=== PATIENT | female | born 2000 | race Caucasian/White ===

== ENCOUNTER 2023-02-16 12:32 | Emergency (ER) | payer OTHER, SELFPAY ==
--- NOTE | ~2023-02-16 | CT_ITS ---
EXAMINATION: CT ABDOMEN AND PELVIS WITH CONTRAST CLINICAL INFORMATION: Diffuse abdominal pain COMPARISON: None available. TECHNIQUE: Multidetector volumetric images were obtained from the superior aspect of the liver through the pubic symphysis following administration 85 mL of Omnipaque 350 intravenous contrast. Sagittal and coronal reformatted images were obtained on the technologist's workstation. Oral contrast: No This CT examination was performed using dose optimization techniques as appropriate, variously including the following: *Automated exposure control *Adjustment of mA and/or kV according to patient size (this includes techniques or standardized protocols for targeted exams where dose is matched to indication/reason for exam; i.e. extremities or head) *Use of iterative reconstruction technique DLP: 662 mGy-cm FINDINGS: Motion degraded exam which somewhat limits evaluation. LUNG BASES: Unremarkable. ABDOMINAL AND PELVIC WALL: Unremarkable. LIVER AND BILIARY TREE: Unremarkable. GALLBLADDER: Unremarkable. PANCREAS: Unremarkable. SPLEEN: Unremarkable. ADRENAL GLANDS: Unremarkable. KIDNEYS AND URETERS: Unremarkable. GASTROINTESTINAL TRACT: Unremarkable. Appendix is not definitively identified however there are no secondary findings to suggest appendicitis. VASCULAR: Unremarkable. LYMPH NODES/PERITONEUM: No lymphadenopathy. FREE FLUID: None. BLADDER: Unremarkable. PELVIC VISCERA: Intrauterine device in place. OSSEOUS STRUCTURES: Unremarkable. CT/CT abdomen pelvis w IV con IMPRESSION: Exam is motion degraded limiting evaluation. With this limitation, no acute findings to explain symptoms of abdominal pain.
--- NOTE | 2023-02-16 12:43 | ECG_ITS ---
Test Reason : cp Blood Pressure : / mmHG Vent. Rate : 064 BPM Atrial Rate : 064 BPM P-R Int : 156 ms QRS Dur : 088 ms QT Int : 406 ms P-R-T Axes : 073 050 044 degrees QTc Int : 418 ms Normal sinus rhythm Normal ECG No previous ECGs available Referred By: Randy Chowdhury Electronically Signed By:CARISSA LOZANO
--- NOTE | 2023-02-16 13:05 | ED.GENADULT ---
HPI - General Adult General Chief complaint: General Medical <BOB Smith - Last Filed: 02/16/23 13:10> Stated complaint: Vomiting <BOB Smith - Last Filed: 02/16/23 13:10> Time Seen by Provider: 02/16/23 15:58 <BOB Smith - Last Filed: 02/16/23 13:10> Source: patient and RN notes reviewed <Amilcar Amaro - Last Filed: 02/16/23 20:11> Mode of arrival: ambulatory <Amilcar Amaro - Last Filed: 02/16/23 20:11> Limitations: no limitations <Amilcar Amaro - Last Filed: 02/16/23 20:11> History of Present Illness HPI narrative: 22-year-old female who presents for evaluation of vomiting. She reports she started with generalized abdominal pain and vomiting that started 2 days ago. She reports that her symptoms seemed to improve yesterday then got worse again today. She reports vomiting approximately 30 minutes. Denies any seen any blood in vomitus. Denies any history abdominal surgeries She reports that she is currently on her menstrual cycle and not . She rates her pain as 8/10. The patient also complains of chest pain located in upper chest. This is not related to exertion Denies any shortness of breath or palpitations No fevers noted <Amilcar Amaro - Last Filed: 02/16/23 20:11> Related Data Home medications: Previous Rx's Medication Instructions Recorded ondansetron 4 mg disintegrating 4 mg PO Q8H PRN nausea and 02/16/23 tablet vomiting #12 tabs <BOB Smith - Last Filed: 02/16/23 13:10> Allergies/adverse reactions: Allergies Allergy/AdvReac Type Severity Reaction Status Date / Time No Known Allergies Allergy Verified 02/16/23 13:16 <BOB Smith - Last Filed: 02/16/23 13:10> Review of Systems Constitutional: Constitutional: Reports as per HPI, Denies fever(s) and Denies headache(s) <Amilcar Amaro - Last Filed: 02/16/23 20:11> ENT: Denies headache(s) <Amilcar Amaro - Last Filed: 02/16/23 20:11> Cardiovascular: Cardiovascular: Reports chest pain, Denies syncope, Denies rapid heart rate, Denies irregular heart rhythm and Denies dyspnea <Amilcar Grajeday - Last Filed: 02/16/23 20:11> Respiratory: Respiratory: Denies cough and Denies dyspnea <Amilcar Grajeday - Last Filed: 02/16/23 20:11> Gastrointestinal: Gastrointestinal: Reports abdominal pain, Denies coffee ground emesis, Denies constipation, Reports nausea and Reports vomiting <Amilcar Amaro Last Filed: 02/16/23 20:11> Genitourinary: Genitourinary: Denies dysuria <Amilcar Amaro Last Filed: 02/16/23 20:11> Neurologic: Denies syncope, Denies headache(s) and Denies focal weakness <Amilcar Grajeday - Last Filed: 02/16/23 20:11> [facility] Social History Social History: Social History Alcohol intake: current Alcohol intake frequency: a few times a week Smoked in Last 30 Days: Yes Use of substances other than those prescribed or required for medical reasons: Yes Substance Use Type: Marijuana Advance Directives: No Advance Directives Information Provided: No Patient : No <BOB Smith - Last Filed: 02/16/23 13:10> Physical Exam ED Vital Signs: Vital Signs - 24 hr 02/16/23 13:16 02/16/23 15:25 02/16/23 17:53 Temperature 98 F 97.8 F Pulse Rate 65 60 59 Respiratory Rate 16 18 18 Blood Pressure 158/72 H 144/68 H 147/66 H Pulse Oximetry 100 100 100 Oxygen Delivery Method Room Air Room Air Room Air 02/16/23 19:30 Temperature Pulse Rate 62 Respiratory Rate 16 Blood Pressure 137/65 Pulse Oximetry 100 Oxygen Delivery Method Room Air BMI result Body Mass Index 34.0 <BOB Smith - Last Filed: 02/16/23 13:10> Vital Signs - 24 hr 02/16/23 13:16 02/16/23 15:25 02/16/23 17:53 Temperature 98 F 97.8 F Pulse Rate 65 60 59 Respiratory Rate 16 18 18 Blood Pressure 158/72 H 144/68 H 147/66 H Pulse Oximetry 100 100 100 Oxygen Delivery Method Room Air Room Air Room Air 02/16/23 19:30 Temperature Pulse Rate 62 Respiratory Rate 16 Blood Pressure 137/65 Pulse Oximetry 100 Oxygen Delivery Method Room Air BMI result Body Mass Index 34.0 <Amilcar Last Filed: 02/16/23 20:11> Const General: healthy appearing, comfortable, no acute distress, alert and awake < - Last Filed: 02/16/23 20:11> Nutritional Appearance: well nourished < Last Filed: 02/16/23 20:11> Orientation/consciousness: patient oriented x3 < Last Filed: 02/16/23 20:11> HENMT Head: Yes normocephalic and Yes atraumatic < Last Filed: 02/16/23 20:11> Throat: Yes posterior oropharynx normal < Last Filed: 02/16/23 20:11> Eyes Eyelids: Yes eyelids normal < Last Filed: 02/16/23 20:11> Conjunctivae: conjunctivae normal < Last Filed: 02/16/23 20:11> Sclerae: sclerae normal < Last Filed: 02/16/23 20:11> Corneas: corneas normal < Last Filed: 02/16/23 20:11> Pupils: Equal, round and reactive pupils present < Last Filed: 02/16/23 20:11> EOM: EOMs intact bilaterally < Last Filed: 02/16/23 20:11> Neck Neck: Yes full ROM < Last Filed: 02/16/23 20:11> Resp Effort & Inspection: normal respiratory effort, able to speak in complete sentences, no audible wheezes and not labored < Last Filed: 02/16/23 20:11> Auscultation: clear to auscultation bilaterally < - Last Filed: 02/16/23 20:11> Cardio Rate: regular rate <Amilcar OGarett - Last Filed: 02/16/23 20:11> Rhythm: regular rhythm <Amilcar OGarett - Last Filed: 02/16/23 20:11> GI Inspection: No distended <Amilcar [place] - Last Filed: 02/16/23 20:11> Palpation (GI): Soft to palpation, not firm, Tenderness to palpation present (GI) (Diffusely tender to palpation) obturator sign negative and psoas sign negative, no guarding and not rigid <Amilcar OGarett - Last Filed: 02/16/23 20:11> Auscultation: normoactive bowel sounds <Amilcar [place] - Last Filed: 02/16/23 20:11> Skin General skin exam: no rashes or lesions noted and elasticity normal <Amilcar [place] - Last Filed: 02/16/23 20:11> Neuro General: patient oriented x3 <Amilcar [place] - Last Filed: 02/16/23 20:11> Cranial nerves: Yes Equal, round and reactive pupils present and Yes Bilaterally intact EOM present <Amilcargoldy Grajeday - Last Filed: 02/16/23 20:11> Cognition (Neuro): normal cognition <Amilcar OGarett - Last Filed: 02/16/23 20:11> Extrem Other: Moving all extremities well without any obvious deformities <Amilcar Grajeda Last Filed: 02/16/23 20:11> Course Course Course Narrative: This is an RME: Additional HPI, ROS, PE not included below will be deferred to primary provider. 22-year-old female presents with complaints of nausea, vomiting, subjective fevers and chills, substernal chest pain nonradiating , shortness of breath x2 days. Denies sick contacts. Physical exam benign. Plan at this time labs, imaging, viral testing. <BOB Smith - Last Filed: 02/16/23 13:10> Medications Administered Discontinued Medications Generic Name Dose Route Start Last Admin Trade Name Freq PRN Reason Stop Dose Admin Sodium Chloride 1,000 mls @ 999 mls/hr 02/16/23 12:45 02/16/23 18:09 Ns IV 02/16/23 13:45 Infused .Q1H1M BOGDAN Infusion Iohexol 100 ml 02/16/23 17:43 02/16/23 17:43 Iohexol 350 Mg/Ml 100 Ml Infus..Btl IV 02/16/23 17:44 85 ml ONCE ONE Administration Ketorolac Tromethamine 15 mg 02/16/23 17:52 02/16/23 18:20 Ketorolac Tromethamine 15 Mg/Ml Vial IVPUSH 02/16/23 17:53 15 mg ONCE ONE Administration Metoclopramide HCl 10 mg 02/16/23 17:52 02/16/23 18:06 Metoclopramide Hcl 10 Mg/2 Ml Vial IVPUSH 02/16/23 17:53 10 mg ONCE ONE Administration Ondansetron HCl 4 mg 02/16/23 12:38 02/16/23 16:05 Ondansetron Odt 4 Mg Tab.Rapdis TRANSLINGU 02/16/23 12:39 Not Given ONCE ONE Ondansetron HCl 4 mg 02/16/23 16:04 02/16/23 16:07 Ondansetron Hcl 4 Mg/2 Ml Vial IVPUSH 02/16/23 16:05 4 mg ONCE ONE Administration <BOB Smith - Last Filed: 02/16/23 13:10> Medications Administered Discontinued Medications Generic Name Dose Route Start Last Admin Trade Name Freq PRN Reason Stop Dose Admin Sodium Chloride 1,000 mls @ 999 mls/hr 02/16/23 12:45 02/16/23 18:09 Ns IV 02/16/23 13:45 Infused .Q1H1M BOGDAN Infusion Iohexol 100 ml 02/16/23 17:43 02/16/23 17:43 Iohexol 350 Mg/Ml 100 Ml Infus..Btl IV 02/16/23 17:44 85 ml ONCE ONE Administration Ketorolac Tromethamine 15 mg 02/16/23 17:52 02/16/23 18:20 Ketorolac Tromethamine 15 Mg/Ml Vial IVPUSH 02/16/23 17:53 15 mg ONCE ONE Administration Metoclopramide HCl 10 mg 02/16/23 17:52 02/16/23 18:06 Metoclopramide Hcl 10 Mg/2 Ml Vial IVPUSH 02/16/23 17:53 10 mg ONCE ONE Administration Ondansetron HCl 4 mg 02/16/23 12:38 02/16/23 16:05 Ondansetron Odt 4 Mg Tab.Bandar GAMBOAINGU 02/16/23 12:39 Not Given ONCE ONE Ondansetron HCl 4 mg 02/16/23 16:04 02/16/23 16:07 Ondansetron Hcl 4 Mg/2 Ml Vial IVPUSH 02/16/23 16:05 4 mg ONCE ONE Administration <Amilcar Amaro - Last Filed: 02/16/23 20:11> Medical Decision Making Medical Decision Making MDM Narrative: 22-year-old female presents for evaluation of vomiting with abdominal pain and chest pain. Symptoms started 2 days ago. She is mildly hypertensive at 144/68 otherwise vital signs within normal limits. The patient has a leukocytosis to 18.4k with diffuse abdominal tenderness vomiting. We will obtain CT scan to evaluate for intra-abdominal pathology. Concern for appendicitis versus gastroenteritis. Patient's electrolytes within normal limits. Should she with IV fluids and Zofran. The patient's troponin level is negative and EKG without ischemic changes. Her chest pain is less likely related to cardiac disease. <Amilcar Amaro - Last Filed: 02/16/23 20:11> Differential Diagnosis Gastroenteritis Vomiting and diarrhea Dehydration Acute appendicitis Pancreatitis Cannabis hyperemesis syndrome <Amilcar Amaro - Last Filed: 02/16/23 20:11> Lab Data Result Diagrams: 02/16/23 13:05 02/16/23 13:05 <BOB Smith - Last Filed: 02/16/23 13:10> Labs: Lab Results 02/16/23 02/16/23 02/16/23 Range/Units 13:05 13:05 13:05 WBC 18.4 H (4.8-10.8) X10*3/uL RBC 4.99 (4.20-5.50) X10*6/uL Hgb 14.6 (12.0-16.0) g/dl Hct 41.7 (37.0-47.0) % MCV 83.6 (80.0-98.0) fL MCH 29.3 (27.0-33.0) pg MCHC 35.0 (31.0-35.0) g/dl RDW 12.1 (11.0-16.0) % Plt Count 298 (160-400) X10*3/uL MPV 10.4 (9.4-12.3) fL Immature Gran % (Auto) 0.4 (0.0-0.4) % Neut % (Auto) 78.9 H (45-73) % Lymph % (Auto) 12.8 L (20-40) % [place] % (Auto) 6.9 (2-11) % Eos % (Auto) 0.5 (0-4) % Baso % (Auto) 0.5 (0-2) % Lymph # (Auto) 2.4 (1.2-4.9) X10*3/uL [place] # (Auto) 1.3 H (0.1-1.2) X10*3/uL Eos # (Auto) 0.1 (0.0-0.4) X10*3/uL Baso # (Auto) 0.1 (0.0-0.2) X10*3/uL Abs Immat Gran (auto) 0.08 H (0.00-0.03) X10*3/uL Absolute Neuts (auto) 14.5 H (2.0-8.3) x10*3/uL Absolute Nucleated RBC 0.000 (0.0-0.012) X10*3/uL Nucleated RBC % (auto) 0.0 (0.0-0.2) /100WBC Sodium 142 (135-145) mmol/L Potassium 4.1 (3.3-5.1) mmol/L Chloride 108 (96-108) mmol/L Carbon Dioxide 21 L (22-29) mmol/L Anion Gap 17 (12-20) BUN 11 (9-16) mg/dL Creatinine 0.86 (0.5-1.4) mg/dL Estim Creat Clear Calc 108.2 Estimated GFR > 60 Random Glucose 123 H (60-115) mg/dL Calcium 9.7 (8.4-10.2) mg/dL Magnesium 1.8 (1.6-2.6) mg/dL Total Bilirubin 0.5 (0.0-1.0) mg/dL AST 15 (5-31) U/L ALT 15 (0-31) U/L Alkaline Phosphatase 62 (39-117) U/L Troponin I High Sens (<3.5-17.0) ng/L Total Protein 7.5 (6.5-8.0) g/dL Albumin 4.5 (3.5-5.0) g/dL Lipase 16 (8-78) U/L Beta HCG, Quant < 2 mIU/mL Urine Color Urine Appearance Urine pH (5.0-9.0) Ur Specific [place] (1.005-1.025) Urine Protein (Neg-Trace) mg/dL Urine Glucose (UA) (Negative) mg/dL Urine Ketones (Negative) mg/dL Urine Blood (Negative) Urine Nitrite (Negative) Ur Leukocyte Esterase (Negative) Urine RBC (0-2) /HPF Urine WBC (0-5) /HPF Ur Squamous Epith Cells (0-2) /HPF Urine Bacteria (None Seen) Hyaline Casts (0-2) /LPF COVID-19 (MILI) (Negative) COVID-19 Clin Com Influenza Type A (AIDE) Negative (Negative) Influenza Type B (AIDE) Negative (Negative) Influenza A & B Note See Note 02/16/23 02/16/23 02/16/23 Range/Units 13:05 13:05 18:05 WBC (4.8-10.8) X10*3/uL RBC (4.20-5.50) X10*6/uL Hgb (12.0-16.0) g/dl Hct (37.0-47.0) % MCV (80.0-98.0) fL MCH (27.0-33.0) pg MCHC (31.0-35.0) g/dl RDW (11.0-16.0) % Plt Count (160-400) X10*3/uL MPV (9.4-12.3) fL Immature Gran % (Auto) (0.0-0.4) % Neut % (Auto) (45-73) % Lymph % (Auto) (20-40) % [place] % (Auto) (2-11) % Eos % (Auto) (0-4) % Baso % (Auto) (0-2) % Lymph # (Auto) (1.2-4.9) X10*3/uL [place] # (Auto) (0.1-1.2) X10*3/uL Eos # (Auto) (0.0-0.4) X10*3/uL Baso # (Auto) (0.0-0.2) X10*3/uL Abs Immat Gran (auto) (0.00-0.03) X10*3/uL Absolute Neuts (auto) (2.0-8.3) x10*3/uL Absolute Nucleated RBC (0.0-0.012) X10*3/uL Nucleated RBC % (auto) (0.0-0.2) /100WBC Sodium (135-145) mmol/L Potassium (3.3-5.1) mmol/L Chloride (96-108) mmol/L Carbon Dioxide (22-29) mmol/L Anion Gap (12-20) BUN (9-16) mg/dL Creatinine (0.5-1.4) mg/dL Estim Creat Clear Calc Estimated GFR Random Glucose (60-115) mg/dL Calcium (8.4-10.2) mg/dL Magnesium (1.6-2.6) mg/dL Total Bilirubin (0.0-1.0) mg/dL AST (5-31) U/L ALT (0-31) U/L Alkaline Phosphatase (39-117) U/L Troponin I High Sens < 3.5 (<3.5-17.0) ng/L Total Protein (6.5-8.0) g/dL Albumin (3.5-5.0) g/dL Lipase (8-78) U/L Beta HCG, Quant mIU/mL Urine Color Yellow Urine Appearance Clear Urine pH 6.5 (5.0-9.0) Ur Specific [place] 1.020 (1.005-1.025) Urine Protein 30 (1+) H (Neg-Trace) mg/dL Urine Glucose (UA) Negative (Negative) mg/dL Urine Ketones 80 (Negative) mg/dL Urine Blood Large (3+) H (Negative) Urine Nitrite Negative (Negative) Ur Leukocyte Esterase Small (1+) H (Negative) Urine RBC >20 H (0-2) /HPF Urine WBC 11-20 H (0-5) /HPF Ur Squamous Epith Cells 0-2 (0-2) /HPF Urine Bacteria None Seen (None Seen) Hyaline Casts 0-2 (0-2) /LPF COVID-19 (MILI) Negative (Negative) COVID-19 Clin Com See Note Influenza Type A (AIDE) (Negative) Influenza Type B (AIDE) (Negative) Influenza A & B Note <BOB Smith - Last Filed: 02/16/23 13:10> Lab Results 02/16/23 02/16/23 02/16/23 Range/Units 13:05 13:05 13:05 WBC 18.4 H (4.8-10.8) X10*3/uL RBC 4.99 (4.20-5.50) X10*6/uL Hgb 14.6 (12.0-16.0) g/dl Hct 41.7 (37.0-47.0) % MCV 83.6 (80.0-98.0) fL MCH 29.3 (27.0-33.0) pg MCHC 35.0 (31.0-35.0) g/dl RDW 12.1 (11.0-16.0) % Plt Count 298 (160-400) X10*3/uL MPV 10.4 (9.4-12.3) fL Immature Gran % (Auto) 0.4 (0.0-0.4) % Neut % (Auto) 78.9 H (45-73) % Lymph % (Auto) 12.8 L (20-40) % [place] % (Auto) 6.9 (2-11) % Eos % (Auto) 0.5 (0-4) % Baso % (Auto) 0.5 (0-2) % Lymph # (Auto) 2.4 (1.2-4.9) X10*3/uL [place] # (Auto) 1.3 H (0.1-1.2) X10*3/uL Eos # (Auto) 0.1 (0.0-0.4) X10*3/uL Baso # (Auto) 0.1 (0.0-0.2) X10*3/uL Abs Immat Gran (auto) 0.08 H (0.00-0.03) X10*3/uL Absolute Neuts (auto) 14.5 H (2.0-8.3) x10*3/uL Absolute Nucleated RBC 0.000 (0.0-0.012) X10*3/uL Nucleated RBC % (auto) 0.0 (0.0-0.2) /100WBC Sodium 142 (135-145) mmol/L Potassium 4.1 (3.3-5.1) mmol/L Chloride 108 (96-108) mmol/L Carbon Dioxide 21 L (22-29) mmol/L Anion Gap 17 (12-20) BUN 11 (9-16) mg/dL Creatinine 0.86 (0.5-1.4) mg/dL Estim Creat Clear Calc 108.2 Estimated GFR > 60 Random Glucose 123 H (60-115) mg/dL Calcium 9.7 (8.4-10.2) mg/dL Magnesium 1.8 (1.6-2.6) mg/dL Total Bilirubin 0.5 (0.0-1.0) mg/dL AST 15 (5-31) U/L ALT 15 (0-31) U/L Alkaline Phosphatase 62 (39-117) U/L Troponin I High Sens (<3.5-17.0) ng/L Total Protein 7.5 (6.5-8.0) g/dL Albumin 4.5 (3.5-5.0) g/dL Lipase 16 (8-78) U/L Beta HCG, Quant < 2 mIU/mL Urine Color Urine Appearance Urine pH (5.0-9.0) Ur Specific [place] (1.005-1.025) Urine Protein (Neg-Trace) mg/dL Urine Glucose (UA) (Negative) mg/dL Urine Ketones (Negative) mg/dL Urine Blood (Negative) Urine Nitrite (Negative) Ur Leukocyte Esterase (Negative) Urine RBC (0-2) /HPF Urine WBC (0-5) /HPF Ur Squamous Epith Cells (0-2) /HPF Urine Bacteria (None Seen) Hyaline Casts (0-2) /LPF COVID-19 (MILI) (Negative) COVID-19 Clin Com Influenza Type A (AIDE) Negative (Negative) Influenza Type B (AIDE) Negative (Negative) Influenza A & B Note See Note 03/30/23 03/30/23 03/30/23 Range/Units 13:05 13:05 18:05 WBC (4.8-10.8) X10*3/uL RBC (4.20-5.50) X10*6/uL Hgb (12.0-16.0) g/dl Hct (37.0-47.0) % MCV (80.0-98.0) fL MCH (27.0-33.0) pg MCHC (31.0-35.0) g/dl RDW (11.0-16.0) % Plt Count (160-400) X10*3/uL MPV (9.4-12.3) fL Immature Gran % (Auto) (0.0-0.4) % Neut % (Auto) (45-73) % Lymph % (Auto) (20-40) % [place] % (Auto) (2-11) % Eos % (Auto) (0-4) % Baso % (Auto) (0-2) % Lymph # (Auto) (1.2-4.9) X10*3/uL [place] # (Auto) (0.1-1.2) X10*3/uL Eos # (Auto) (0.0-0.4) X10*3/uL Baso # (Auto) (0.0-0.2) X10*3/uL Abs Immat Gran (auto) (0.00-0.03) X10*3/uL Absolute Neuts (auto) (2.0-8.3) x10*3/uL Absolute Nucleated RBC (0.0-0.012) X10*3/uL Nucleated RBC % (auto) (0.0-0.2) /100WBC Sodium (135-145) mmol/L Potassium (3.3-5.1) mmol/L Chloride (96-108) mmol/L Carbon Dioxide (22-29) mmol/L Anion Gap (12-20) BUN (9-16) mg/dL Creatinine (0.5-1.4) mg/dL Estim Creat Clear Calc Estimated GFR Random Glucose (60-115) mg/dL Calcium (8.4-10.2) mg/dL Magnesium (1.6-2.6) mg/dL Total Bilirubin (0.0-1.0) mg/dL AST (5-31) U/L ALT (0-31) U/L Alkaline Phosphatase (39-117) U/L Troponin I High Sens < 3.5 (<3.5-17.0) ng/L Total Protein (6.5-8.0) g/dL Albumin (3.5-5.0) g/dL Lipase (8-78) U/L Beta HCG, Quant mIU/mL Urine Color Yellow Urine Appearance Clear Urine pH 6.5 (5.0-9.0) Ur Specific [place] 1.020 (1.005-1.025) Urine Protein 30 (1+) H (Neg-Trace) mg/dL Urine Glucose (UA) Negative (Negative) mg/dL Urine Ketones 80 (Negative) mg/dL Urine Blood Large (3+) H (Negative) Urine Nitrite Negative (Negative) Ur Leukocyte Esterase Small (1+) H (Negative) Urine RBC >20 H (0-2) /HPF Urine WBC 11-20 H (0-5) /HPF Ur Squamous Epith Cells 0-2 (0-2) /HPF Urine Bacteria None Seen (None Seen) Hyaline Casts 0-2 (0-2) /LPF COVID-19 (MILI) Negative (Negative) COVID-19 Clin Com See Note Influenza Type A (AIDE) (Negative) Influenza Type B (AIDE) (Negative) Influenza A & B Note <Amilcar Amaro - Last Filed: 02/16/23 20:11> Discharge Plan Discharge Clinical Impression: Vomiting <BOB Smith - Last Filed: 02/16/23 13:10> Patient Disposition: Home, Self-Care <BOB Smith - Last Filed: 02/16/23 13:10> Instructions: Acute Nausea and Vomiting (ED) <BOB Smith - Last Filed: 02/16/23 13:10> Additional Instructions: Use the ondansetron every 8 hours as needed for nausea and vomiting. Your electrolytes were within normal limits. Your white blood cell count was elevated to 18k which can be seen with a lot of vomiting and a viral infection Your CT scan did not show any evidence of appendicitis or other significant infection <BOB Smith - Last Filed: 02/16/23 13:10> Prescriptions: New ondansetron 4 mg tablet,disintegrating 4 mg PO Q8H PRN (Reason: nausea and vomiting) Qty: 12 0RF <BOB Smith - Last Filed: 02/16/23 13:10>
[2023-02-16 13:16] VITALS: BP 158/72; PULSE 65; RESP 16; TEMP 36.6; O2SAT 100; BMI 34.0
[2023-02-16 13:16] LABS: MANUAL DIFF FLAG NO
[2023-02-16 13:24] LABS: Basophils Absolute Auto 0.1 X10*3/uL (0.0-0.2); Basophils Percent Auto 0.5 % (0-2); Eosinophils Absolute Auto 0.1 X10*3/uL (0.0-0.4); Eosinophils Percent Auto 0.5 % (0-4); Hematocrit 41.7 % (37.0-47.0); Hemoglobin 14.6 g/dl (12.0-16.0); Imm Gran Abs Auto 0.08 X10*3/uL (0.00-0.03); Imm Gran Pct Auto 0.4 % (0.0-0.4); Lymphocytes Absolute Auto 2.4 X10*3/uL (1.2-4.9); Lymphocytes Percent Auto 12.8 % (20-40); Mean Corpuscular Hemoglobin 29.3 pg (27.0-33.0); Mean Corpuscular Volume 83.6 fL (80.0-98.0); Mean Platelet Volume 10.4 fL (9.4-12.3); Monocytes Absolute Auto 1.3 X10*3/uL (0.1-1.2); Monocytes Percent Auto 6.9 % (2-11); Neutrophils Absolute Auto 14.5 x10*3/uL (2.0-8.3); Neutrophils Percent Auto 78.9 % (45-73); Platelet Count 298 X10*3/uL (160-400); Red Blood Count 4.99 X10*6/uL (4.20-5.50); Red Cell Distribution Width 12.1 % (11.0-16.0); White Blood Count 18.4 X10*3/uL (4.8-10.8)
[2023-02-16 13:36] LABS: COVID-19 Test Negative (Negative); IDNOW Serial# 08D9AD1C; IDNOW Serial# BCCEAD1C; Influenza A Negative (Negative); Influenza B2 Negative (Negative)
[2023-02-16 13:58] LABS: Troponin-I High Sensitivity < 3.5 ng/L (<3.5-17.0)
[2023-02-16 14:01] LABS: Alanine Aminotransferase 15 U/L (0-31); Albumin Level 4.5 g/dL (3.5-5.0); Alkaline Phosphatase 62 U/L (39-117); Anion Gap 17 (12-20); Aspartate Amino Transferase 15 U/L (5-31); Bilirubin Total 0.5 mg/dL (0.0-1.0); Blood Urea Nitrogen 11 mg/dL (9-16); Calcium 9.7 mg/dL (8.4-10.2); Carbon Dioxide 21 mmol/L (22-29); Chloride 108 mmol/L (96-108); Creatinine Clr Calc Pharmacy 108.2; Estimated Glomerular Filt Rate > 60; Glucose Random 123 mg/dL (60-115); HCG Quantitative < 2 mIU/mL; Magnesium 1.8 mg/dL (1.6-2.6); Potassium 4.1 mmol/L (3.3-5.1); Sodium 142 mmol/L (135-145); Total Protein 7.5 g/dL (6.5-8.0)
[2023-02-16 14:10] LABS: Lipase 16 U/L (8-78)
--- OUTSIDE RECORDS SUMMARY | 2023-02-16 14:45 | XMS_ITS | Continuity of Care Document ---
Author Name Unknown Organization [facility] Address [address] [place] [address]- Care Team Providers Care Bakery Products Checker Name Role Phone Jules LEW, Davin Primary Care Physician Encounter [facility] [place] Date(s): 04/30/20 - 05/30/20 [facility] [address] [place] [address]- [facility] Attending Physician: Admtr, Ar8 Admitting Physician: Admtr, Ar8 Referring Physician: Admtr, Ar8 Allergies, Adverse Reactions, Alerts Substance Reaction Severity Status NKA Active
[2023-02-16 15:25] VITALS: BP 144/68; PULSE 60; RESP 18; O2SAT 100
--- NOTE | 2023-02-16 15:30 | PC.NURSE ---
Pt a&ox4, lying semi-fowlers in bed, airway open and patent, pt guarding abdomen, complaining of 8/10 pain. Pt reports abdominal pain that radiates to her chest. Pt reports that she has her period and she has been bleeding much more than usual, stating that when she was in the waiting room, she was soaking toilet paper about every 15 mins. Pt reports that she has also been vomiting since yesterday.
[2023-02-16] MEDS: 0.9 % Sodium Chloride 1,000 ML 999 ML IV (16:05)
[2023-02-16] MEDS: ondansetron HCL 4 MG/2 ML VIAL IVPUSH (16:07)
[2023-02-16] MEDS: iohexoL 350 MG/ML 100 ML INFUS..BTL IV (17:43)
[2023-02-16 17:53] VITALS: BP 147/66; PULSE 59; RESP 18; TEMP 36.6; O2SAT 100
[2023-02-16] MEDS: Metoclopramide HCl 10 MG/2 ML VIAL IVPUSH (18:06)
[2023-02-16 18:15] LABS: Appearance Urine Clear; Color Urine Yellow; Glucose Urine UA Negative (Negative); Leukocyte Esterase Urine Small (1+) (Negative); Nitrite Urine Negative (Negative); PH 6.5 (5.0-9.0); UMIC TRIGGER UACC YES; Urine Blood Large (3+) (Negative); Urine Ketones 80 mg/dL (Negative); Urine Protein 30 (1+) mg/dL (Neg-Trace)
[2023-02-16 18:20] LABS: Bacteria Urine None Seen (None Seen); Hyaline Casts Urine 0-2 /LPF (0-2); RBC Urine >20 /HPF (0-2); Squamous Epithelial Cell Urine 0-2 /HPF (0-2); UACC Culture Trigger YES
[2023-02-16] MEDS: Ketorolac Tromethamine 15 MG/ML VIAL IVPUSH (18:20)
[2023-02-16 19:30] VITALS: BP 137/65; PULSE 62; RESP 16; O2SAT 100
== END 2023-02-16 20:48 | disposition home or self-care (01) ==
PROVIDERS: Physician Assistant; Emergency Provider Emergency Medicine Emergency Medical Services
DX: R11.10 Vomiting, unspecified (principal); R10.9 Unspecified abdominal pain; D72.829 Elevated white blood cell count, unspecified; Z20.822 Contact with and (suspected) exposure to COVID-19; F12.90 Cannabis use, unspecified, uncomplicated
CPT/HCPCS: 36415; 74177; 80053; 81001; 83690; 83735; 84484; 84702; 85025; 87086; 87502; 87635; 93005; 96361; 96374; 96375; 99284; 99285; J1885; J2405; J2765; Q9967